=== PATIENT | female | born 1975 | race Caucasian/White ===

== ENCOUNTER 2016-08-25 00:09 | Observation (INO) | payer OTHER ==
[~2016-08-25] VITALS: Ht 165.1 cm; Wt 135.0 kg
[2016-08-25 01:17] LABS: BASO % 0.2 % (0.1-1.2); EOS # 0.3 10_X3_uL (0.0-0.4); EOS % 2.5 % (0.7-5.8); GRAN # 7.8 10_X3_uL (1.6-6.1); GRAN % 74.9 % (34.0-71.1); HEMATOCRIT 37.3 % (34-45); HEMOGLOBIN 11.9 g/dL (11.2-15.7); LYMPH # 1.8 10_X3_uL (1.2-3.7); LYMPH % 17.5 % (19.3-51.7); MEAN CORPUSCULAR HEMOGLOBIN 25.2 pg (27.0-33.0); MEAN CORPUSCULAR HGB CONC 31.9 g/dL (32.0-36.0); MEAN PLATELET VOLUME 11.5 fl (7.5-11.5); MONO # 0.5 10_X3_uL (0.2-0.9); MONO % 4.9 % (4.7-12.5); PLATELET COUNT 251 x10_3/uL (182-369); RED BLOOD COUNT 4.72 x10_6/uL (3.9-5.2); RED CELL DISTRIBUTION WIDTH 17.2 % (11.7-14.4); WHITE BLOOD COUNT 10.4 x10_3/uL (4.0-10.0)
[2016-08-25 01:24] LABS: BLOOD UREA NITROGEN 10 mg/dL (7-18); CALCIUM 8.7 mg/dL (8.7-10.7); CARBON DIOXIDE 20 mmol/L (21-32); CREATININE 0.7 mg/dL (0.6-1.3); GLUCOSE,RANDOM 142 mg/dL (70-99); POTASSIUM 3.8 mmol/L (3.5-5.1); SODIUM 142 mmol/L (136-145)
[2016-08-25 07:22] LABS: HEMOGLOBIN 10.8 g/dL (11.2-15.7); MEAN CORPUSCULAR HEMOGLOBIN 24.8 pg (27.0-33.0); MEAN CORPUSCULAR HGB CONC 30.9 g/dL (32.0-36.0); MEAN CORPUSCULAR VOLUME 80.3 fL (79-95); MEAN PLATELET VOLUME 11.2 fl (7.5-11.5); RED BLOOD COUNT 4.36 x10_6/uL (3.9-5.2); RED CELL DISTRIBUTION WIDTH 17.2 % (11.7-14.4); WHITE BLOOD COUNT 9.9 x10_3/uL (4.0-10.0)
[2016-08-25 07:54] LABS: BLOOD UREA NITROGEN 9 mg/dL (7-18); CALCIUM 8.7 mg/dL (8.7-10.7); CARBON DIOXIDE 23 mmol/L (21-32); CREATININE 0.7 mg/dL (0.6-1.3); GLUCOSE,RANDOM 113 mg/dL (70-99); POTASSIUM 4.2 mmol/L (3.5-5.1); SODIUM 139 mmol/L (136-145)
== END 2016-08-25 15:15 | disposition home or self-care (01) ==
LOC: ER 00:09 → MS 01:37
PROVIDERS: General Practice; ADMIT Family Medicine
PROC: 3E0234Z Introduction of Serum, Toxoid and Vaccine into Muscle, Percutaneous Approach (ICD-10-PCS; principal; 2016-08-25)
DX: R00.2 Palpitations (principal); F41.9 Anxiety disorder, unspecified; F32.9 Major depressive disorder, single episode, unspecified; G89.29 Other chronic pain; M54.9 Dorsalgia, unspecified; F17.210 Nicotine dependence, cigarettes, uncomplicated; Z98.51 Tubal ligation status; Z23 Encounter for immunization
CPT/HCPCS: 36415; 80048; 82550; 82553; 83735; 84443; 84484; 85025; 90732; 93005; 99070; 99285-25; G0009; G0378